=== PATIENT | male | born 1960 | race Caucasian/White ===

== ENCOUNTER 2016-10-17 23:19 | Inpatient (IN) | payer OTHER ==
--- NOTE | ~2016-10-17 | DS ---
Discharge Summary [facility] [address] [place]. [address] NAME: LAVINIA JJ : 56 STATUS : DIS IN PAT#: [id number] AGE: 55 ADM/REG DATE : 10/17/16 MR#: [id number] REPORT SERV DATE: 10/22/16 DICTATED BY: ANKIT RIVAS DATE: 10/21/16 REPORT STATUS : Draft TRANSCRIBED BY: MODL DATE: 10/21/16 ADMISSION DATE: 10/17/2016 DISCHARGE DATE: 10/21/2016 DISCHARGE DIAGNOSES: 1. Gastroenteritis, most likely infectious versus related to meloxicam as this has been going on off and on for three months according to the patient's history. 2. New-onset type 2 diabetes mellitus with a hemoglobin A1c of 9.7. 3. Gastroesophageal reflux disease. 4. Glaucoma. 5. Ileus that has now resolved. 6. Severe obstructive sleep apnea, on CPAP. 7. Pulmonary nodule and lymphadenopathy, followed in the outpatient setting. 8. Fatty liver disease, also noted on ultrasound of the liver this time. 9. Prior history of esophageal stricture with dilatation. CONSULTANTS DURING THIS HOSPITALIZATION: None. INVASIVE PROCEDURES DONE DURING THIS HOSPITALIZATION: None. BRIEF HISTORY OF PRESENT ILLNESS: The patient is a 55-year-old white male, presented with two days history of diarrhea and then proceeded on to have nausea and one large vomiting episode in the emergency department, so he was admitted. For detailed history and physical exam, please see note dictated by Dr. Rohith Mcclendon on 10/17/2016. HOSPITAL COURSE: After being admitted to the hospital, this patient underwent observation initially for his ileus and diarrhea. He was given supportive care and kept n.p.o. He was found to have significant elevated sugar on admission as well. All other medications were continued. He was found to have metabolic acidosis that quickly corrected with aggressive resuscitation of IV fluids. When I saw the patient in followup, this patient was still persistently having diarrhea at that time. It was recommended that we follow him further. He was thought to have improving gastroenteritis and his ileus had resolved, and he had had multiple loose bowel movements. For the new onset diabetes, initially we started him on subcutaneous sliding scale insulin. His Protonix was continued and changed to p.o. We added Florastor one tablet twice daily and we added Xifaxan thinking that this could be related to infectious diarrhea or irritable bowel syndrome. An ultrasound of the gallbladder was done to ensure no gallbladder disease. There were no stones nor any common bile duct problems. Fatty infiltration of the liver was noted. This patient continued to improve. All his lab work has remained stable. We advanced his diet and today, he has been able to tolerate his diet. He says that he feels well enough that he wants to go home and recover in the home setting. He had a colonoscopy done in 2013 that was unremarkable. He had an EGD done in 2015 that was unremarkable as well. After reviewing his medications, I suspected that he may have diarrhea waxing and waning most likely due to use of meloxicam as he reported today that this has been going on for about three months. Stool studies were done, which were negative. Discharge Summary [place] [id number] [place]. [address] NAME: LAVINIA JJ : 56 STATUS : DIS IN PAT#: [id number] AGE: 55 ADM/REG DATE : 10/17/16 MR#: [id number] REPORT SERV DATE: 10/22/16 DICTATED BY: ANKIT RIVAS DATE: 10/21/16 REPORT STATUS : Draft TRANSCRIBED BY: KESHA DATE: 10/21/16 DISPOSITION: Home. ACTIVITY: As tolerated. DIET: Low sodium diet with no concentrated sweets. MEDICATIONS: 1. Xifaxan 550 mg p.o. twice daily for 30 days to see if this would help his irritable bowel syndrome symptoms. 2. Prevacid 30 mg once every morning. 3. Allergy eyedrops as needed. 4. Timolol eye drops one drop twice daily in each eye. 5. Glucotrol 5 mg once daily. 6. Januvia 50 mg once daily. DISCHARGE FOLLOWUP: With Dr. Donovan Poole for further treatment of his diabetes and medication adjustments as deemed by guidelines for treatment of diabetes. More than 30 minutes spent planning this patient's discharge, reconciling medications, writing prescriptions, discussing hospital care, and followup with the patient and documenting this discharge. ANGELIA/KESHA Ankit Rivas M.D. / [id number] CC: Wilda Jolly M.D.
--- NOTE | ~2016-10-17 | HP ---
History And Physical [address] [address] NAME: LAVINIA JJ : 56 STATUS : ADM Eloy PAT#: [id number] AGE: 55 ADM/REG DATE : 10/17/16 MR#: [id number] REPORT SERV DATE: 10/18/16 DICTATED BY: NAY LÓPEZ DATE: 10/18/16 REPORT STATUS : Draft TRANSCRIBED BY: MODL DATE: 10/18/16 DATE OF ADMISSION: 10/17/2016 CHIEF COMPLAINT: A 55-year-old male presenting with abdominal pain and nausea. HISTORY OF PRESENT ILLNESS: The patient's history was obtained through careful interview with the patient, coupled with review of [facility] and [facility] medical records. The patient states that for about two days he has had primary symptom of diarrhea, it first was about once an hour over about 12-hour period of time when he started taking Lomotil and now it has improved considerably. He has began to have sour belches and nausea, had one large vomit episode here in the emergency department. He describes diaphoresis and anxiety, but no fevers or chills. The patient has never had a diagnosis of diabetes, but he has suffered from polyuria and polydipsia recently. He describes right upper quadrant abdominal discomfort with his nausea and diarrhea, sharp shooting pain 6 to 7/10 severity. Last night, he could not sleep because of it. No chest pain. No sick contacts. No recent antibiotics. No foreign travel. REVIEW OF SYSTEMS: Otherwise 14-point review of systems was obtained and was negative. PAST MEDICAL HISTORY: 1. Gastroesophageal reflux disorder with Samaniego's seen by Dr. Dre Contreras. 2. Severe obstructive sleep apnea, on CPAP. 3. Pulmonary nodules and lymphadenopathy, followed outpatient. 4. Fatty liver disease. 5. Vertigo. 6. Negative cardiac stress test in 2012. 7. Esophageal dilatation. PAST SURGICAL HISTORY: 1. Back surgery. 2. Right inguinal hernia repair. 3. Shoulder surgery. 4. Carpal tunnel release. 5. Septoplasty. ALLERGIES: NO KNOWN DRUG ALLERGIES. History And Physical [address] [address] NAME: LAVINIA JJ : 56 STATUS : ADM Eloy PAT#: [id number] AGE: 55 ADM/REG DATE : 10/17/16 MR#: [id number] REPORT SERV DATE: 10/18/16 DICTATED BY: NAY LÓPEZ DATE: 10/18/16 REPORT STATUS : Draft TRANSCRIBED BY: KESHA DATE: 10/18/16 SOCIAL HISTORY: No tobacco abuse. No alcohol abuse. He is . Lives in [place], [place]. He works as a micro computer specialist. Has no biological children. FAMILY HISTORY: Father with heart disease. There is a family history of diabetes and colon cancer. CURRENT MEDICATIONS: Unknown at this time. We have requested Pharmacy to evaluate. PHYSICAL EXAMINATION: VITAL SIGNS: Temperature 97.2, pulse 109, blood pressure 122/75, respiratory rate 18, and O2 saturation 92% on room air. GENERAL: A pleasant, cooperative, male in evidence of some distress secondary to nausea and abdominal pain. HEENT: Pupils equal, round, and reactive to light. No conjunctival pallor. No scleral icterus. Nares are patent. Oropharynx is clear of obstruction. Mildly dry mucous membranes. NECK: Trachea midline. No thyromegaly. LYMPH: No cervical lymphadenopathy. No supraclavicular lymphadenopathy. RESPIRATORY: Clear to auscultation at bases. No wheezes, rales, or rhonchi. Normal respiratory effort. CARDIOVASCULAR: Tachycardic. Regular rhythm. No murmurs, rubs, or gallops. No current extremity edema is appreciated. ABDOMEN: Diffusely tender by exam, nonfocal, and nondistended. No hepatosplenomegaly. DERMATOLOGICAL: Warm and dry extremities. No pallor. No cyanosis. PSYCHIATRIC: Normal affect. Good mood. Alert and oriented x3. LABORATORY DATA: White blood cell count 14.5, hemoglobin 17, hematocrit 49, and platelets 251. Sodium 137, potassium 3.4, chloride 108, bicarb 18, BUN 13, creatinine 1.04, glucose 275. Lipase 52, lactic acid 1.3. Total bilirubin 1.4. IMAGING STUDIES: CT scan of the abdomen shows fatty liver disease and mild ileus changes. ASSESSMENT AND PLAN: 1. Ileus with diarrhea and vomiting. Provide supportive care. 2. New diagnosis diabetes. Check hemoglobin A1c. Place on sliding scale insulin. Obtain a inclusion paraeducator consult. 3. Obstructive sleep apnea. Continue CPAP. 4. Systemic inflammatory response syndrome. We will monitor closely for now. 5. Metabolic acidosis. Provide supportive care and follow closely. KPL/MODL Nay Sparks History And Physical [address] [address] NAME: LAVINIA JJ : 56 STATUS : ADM Eloy PAT#: [id number] AGE: 55 ADM/REG DATE : 10/17/16 MR#: [id number] REPORT SERV DATE: 10/18/16 DICTATED BY: NAY LÓPEZ DATE: 10/18/16 REPORT STATUS : Draft TRANSCRIBED BY: KESHA DATE: 10/18/16 Wilda López / [id number] CC: Alfa Shepard Jr, MD
[~2016-10-17 23:19] MED LIST: ASAB PO; AUG500 PO; BETIMOL0.5 % OPH; LORCET PO; MOBIC15 MG PO; MOBIC7.5 PO; PAIN MED PO; PREV15 PO; PREV30 PO
[2016-10-17 23:48] LABS: BASOPHILS 0 %; EOSINOPHILS 1.4 %; ER CBC TAT 0 Hrs 09 Mins; HEMATOCRIT 48.7 % (40.0-51.0); HEMOGLOBIN 17.2 g/dL (13.6-17.8); IMMATURE GRANULOCYTES 0.3 %; IMMATURE GRANULOCYTES ABSOLUTE 0.05 10/3/uL (0.0-0.11); LYMPHOCYTES 14.6 %; LYMPHOCYTES ABSOLUTE 2.12 10/3/uL (0.67-4.30); MEAN CORPUS HGB CONC 35.3 g/dL (32.0-36.0); MEAN CORPUSCULAR VOLUME 87.9 fL (80-100); MEAN PLATELET VOLUME 10.7 fL (9.2-13.0); MONOCYTES 10.2 %; MONOCYTES ABSOLUTE 1.48 10/3/uL (0.21-1.20); NEUTROPHILS 73.5 %; NEUTROPHILS ABSOLUTE 10.63 10/3/uL (2.02-8.40); PLATELET COUNT 251 10/3/uL (150-400); RBC DISTRIBUTION WIDTH 13.5 % (12.0-16.0); RED CELL COUNT 5.54 10/6/uL (4.7-6.1); WHITE BLOOD CELLS 14.5 10/3/uL (4.5-10.5)
[2016-10-17 23:49] LABS: MANUAL DIFF NO %
[2016-10-18 00:04] LABS: A/G RATIO 0.9 (0.7-1.9); ALBUMIN 3.5 G/DL (3.5-5.0); ALKALINE PHOSPHATASE 97 U/L (45-117); BUN (BLOOD UREA NITROGEN) 13 MG/DL (6-23); CALCIUM, SERUM 8.7 MG/DL (8.5-10.4); CHLORIDE, SERUM 105 MMOL/L (96-112); CREATININE 1.04 MG/DL (0.70-1.30); GFR AFRICAN AMERICAN 92 ML/MIN (>=60); GFR NON AFRICAN AMERICAN 79 ML/MIN (>=60); GLOBULIN 3.8 G/DL (2.5-4.1); POTASSIUM, SERUM 3.4 MMOL/L (3.5-5.3); SGOT(AST) 9 U/L (5-40); SGPT(ALT) 44 U/L (5-65); SODIUM, SERUM 137 MMOL/L (135-148); TOTAL PROTEIN 7.3 G/DL (6.0-8.5)
[2016-10-18 00:06] LABS: CO2 (CARBON DIOXIDE) 18 MMOL/L (24-34); GLUCOSE, SERUM 275 MG/DL (60-99); TOTAL BILIRUBIN 1.4 MG/DL (0-1.2)
[2016-10-18] MEDS ORDERED: PREV30 PO (02:50)
[2016-10-18] MEDS ORDERED: EPINASTINE 0.05% OPH (02:51)
[2016-10-18] MEDS ORDERED: TIMOLOL MAL0.5 % OPH (02:52)
[2016-10-18] MEDS ORDERED: MOBIC15 MG PO (02:53)
[2016-10-18 11:29] LABS: ASCORBIC ACID (UR NOT ORDER) NEG (NEG); BILIRUBIN, URINE NEGATIVE (NEG); ER URINALYSIS TAT 0 Hrs 07 Mins; KETONE, URINE 20 MG/DL (NEG); LEUKOCYTE ESTERASE(NOT OR NEG (NEG); NITRITE (URINE) NEG (NEG); WBC (NOT ORDERED) (RFLEX) 2 (0-5)
[2016-10-18 12:19] LABS: BASOPHILS 0.1 %; BASOPHILS ABSOLUTE 0.01 10/3/uL (0.0-0.16); EOSINOPHILS 1.8 %; EOSINOPHILS ABSOLUTE 0.23 10/3/uL (0.0-0.53); HEMOGLOBIN 14.5 g/dL (13.6-17.8); IMMATURE GRANULOCYTES 0.4 %; IMMATURE GRANULOCYTES ABSOLUTE 0.05 10/3/uL (0.0-0.11); LYMPHOCYTES 15.6 %; LYMPHOCYTES ABSOLUTE 2.01 10/3/uL (0.67-4.30); MEAN CORPUS HGB CONC 33.7 g/dL (32.0-36.0); MEAN CORPUSCULAR HEMOGLOB 30.1 pg (26.0-34.0); MEAN CORPUSCULAR VOLUME 89.2 fL (80-100); MEAN PLATELET VOLUME 10.1 fL (9.2-13.0); MONOCYTES 9.2 %; MONOCYTES ABSOLUTE 1.19 10/3/uL (0.21-1.20); NEUTROPHILS 72.9 %; NEUTROPHILS ABSOLUTE 9.39 10/3/uL (2.02-8.40); PLATELET COUNT 218 10/3/uL (150-400); RBC DISTRIBUTION WIDTH 13.8 % (12.0-16.0); RED CELL COUNT 4.82 10/6/uL (4.7-6.1); WHITE BLOOD CELLS 12.9 10/3/uL (4.5-10.5)
[2016-10-18 12:20] LABS: MANUAL DIFF NO %
[2016-10-18 12:26] LABS: INTERNATIONAL NORMAL RATI 1.2 UNITS (-); PARTIAL THROMBO TIME 33.4 SEC (22.5-37.2); PROTIME (NOT ORD) 14.9 SEC (12.0-14.5)
[2016-10-18 12:45] LABS: A/G RATIO 0.9 (0.7-1.9); ALBUMIN 2.8 G/DL (3.5-5.0); ALKALINE PHOSPHATASE 74 U/L (45-117); BUN (BLOOD UREA NITROGEN) 11 MG/DL (6-23); CALCIUM, SERUM 7.8 MG/DL (8.5-10.4); CHLORIDE, SERUM 106 MMOL/L (96-112); CO2 (CARBON DIOXIDE) 25 MMOL/L (24-34); CREATININE 0.88 MG/DL (0.70-1.30); GFR AFRICAN AMERICAN 111 ML/MIN (>=60); GFR NON AFRICAN AMERICAN 95 ML/MIN (>=60); GLOBULIN 3.1 G/DL (2.5-4.1); GLUCOSE, SERUM 233 MG/DL (60-99); POTASSIUM, SERUM 3.6 MMOL/L (3.5-5.3); SGOT(AST) 4 U/L (5-40); SGPT(ALT) 30 U/L (5-65); SODIUM, SERUM 140 MMOL/L (135-148); TOTAL BILIRUBIN 1.2 MG/DL (0-1.2); TOTAL PROTEIN 5.9 G/DL (6.0-8.5); TROPONIN I <0.02 NG/ML (<0.05)
[2016-10-18 13:19] LABS: PROCALCITONIN 0.17 ng/mL (<0.5)
[2016-10-19 05:26] LABS: BASOPHILS 0.1 %; BASOPHILS ABSOLUTE 0.01 10/3/uL (0.0-0.16); EOSINOPHILS 2.2 %; EOSINOPHILS ABSOLUTE 0.22 10/3/uL (0.0-0.53); HEMOGLOBIN 14.7 g/dL (13.6-17.8); IMMATURE GRANULOCYTES 0.4 %; IMMATURE GRANULOCYTES ABSOLUTE 0.04 10/3/uL (0.0-0.11); LYMPHOCYTES 20.6 %; LYMPHOCYTES ABSOLUTE 2.03 10/3/uL (0.67-4.30); MEAN CORPUS HGB CONC 34.2 g/dL (32.0-36.0); MEAN CORPUSCULAR HEMOGLOB 30.9 pg (26.0-34.0); MEAN CORPUSCULAR VOLUME 90.3 fL (80-100); MEAN PLATELET VOLUME 10.5 fL (9.2-13.0); MONOCYTES 9.6 %; MONOCYTES ABSOLUTE 0.94 10/3/uL (0.21-1.20); NEUTROPHILS 67.1 %; PLATELET COUNT 217 10/3/uL (150-400); RBC DISTRIBUTION WIDTH 13.8 % (12.0-16.0); RED CELL COUNT 4.76 10/6/uL (4.7-6.1); WHITE BLOOD CELLS 9.8 10/3/uL (4.5-10.5)
[2016-10-19 05:36] LABS: CALCIUM, SERUM 8.6 MG/DL (8.5-10.4); CHLORIDE, SERUM 107 MMOL/L (96-112); CO2 (CARBON DIOXIDE) 25 MMOL/L (24-34); CREATININE 0.71 MG/DL (0.70-1.30); GFR AFRICAN AMERICAN 121 ML/MIN (>=60); GFR NON AFRICAN AMERICAN 104 ML/MIN (>=60); PHOSPHORUS, SERUM 2.5 MG/DL (2.5-4.5); POTASSIUM, SERUM 3.6 MMOL/L (3.5-5.3); SODIUM, SERUM 142 MMOL/L (135-148)
[2016-10-19 05:40] LABS: MANUAL DIFF NO %
[2016-10-19 06:05] LABS: BUN (BLOOD UREA NITROGEN) 7 MG/DL (6-23); GLUCOSE, SERUM 154 MG/DL (60-99)
[2016-10-20 03:42] LABS: BASOPHILS 0.3 %; BASOPHILS ABSOLUTE 0.02 10/3/uL (0.0-0.16); EOSINOPHILS ABSOLUTE 0.24 10/3/uL (0.0-0.53); IMMATURE GRANULOCYTES 0.6 %; IMMATURE GRANULOCYTES ABSOLUTE 0.05 10/3/uL (0.0-0.11); LYMPHOCYTES 26.5 %; LYMPHOCYTES ABSOLUTE 2.12 10/3/uL (0.67-4.30); MEAN CORPUS HGB CONC 33.6 g/dL (32.0-36.0); MEAN CORPUSCULAR HEMOGLOB 30.4 pg (26.0-34.0); MEAN CORPUSCULAR VOLUME 90.5 fL (80-100); MEAN PLATELET VOLUME 10.5 fL (9.2-13.0); MONOCYTES 9.4 %; MONOCYTES ABSOLUTE 0.75 10/3/uL (0.21-1.20); NEUTROPHILS 60.2 %; NEUTROPHILS ABSOLUTE 4.82 10/3/uL (2.02-8.40); PLATELET COUNT 199 10/3/uL (150-400); RBC DISTRIBUTION WIDTH 13.8 % (12.0-16.0); RED CELL COUNT 5.26 10/6/uL (4.7-6.1)
[2016-10-20 03:43] LABS: HEMATOCRIT 47.6 % (40.0-51.0); MANUAL DIFF NO %
[2016-10-20 03:56] LABS: ALBUMIN 3.2 G/DL (3.5-5.0); BUN (BLOOD UREA NITROGEN) 6 MG/DL (6-23); CALCIUM, SERUM 8.6 MG/DL (8.5-10.4); CHLORIDE, SERUM 107 MMOL/L (96-112); CO2 (CARBON DIOXIDE) 26 MMOL/L (24-34); CREATININE 0.74 MG/DL (0.70-1.30); GFR AFRICAN AMERICAN 119 ML/MIN (>=60); GFR NON AFRICAN AMERICAN 102 ML/MIN (>=60); GLUCOSE, SERUM 143 MG/DL (60-99); POTASSIUM, SERUM 3.7 MMOL/L (3.5-5.3); SODIUM, SERUM 142 MMOL/L (135-148)
[2016-10-20 03:58] LABS: PHOSPHORUS, SERUM 3.3 MG/DL (2.5-4.5); PLATELET ESTIMATE ADQ (ADEQUATE)
[2016-10-21] MEDS ORDERED: JANUVIA50 PO (13:24)
[2016-10-21] MEDS ORDERED: GLUCOTROL5 PO (13:24)
[2016-10-21] MEDS ORDERED: XIFAXAN550 MG PO (13:25)
[2017-01-10] MEDS ORDERED: FISH-EPA1000 MG PO (13:57)
[2017-01-10] MEDS ORDERED: CINNAMONPO PO (13:57)
== END 2016-10-21 14:48 | disposition home or self-care (01) | DRG 394 ==
LOC: ER 23:19 → CDU1 23:59
PROVIDERS: Internal Medicine; Specialist
DX: K52.1 Toxic gastroenteritis and colitis (principal); A09 Infectious gastroenteritis and colitis, unspecified; E87.2 Acidosis; R65.10 Systemic inflammatory response syndrome (SIRS) of non-infectious origin without acute organ dysfunction; K56.7 Ileus, unspecified; E11.9 Type 2 diabetes mellitus without complications; K21.9 Gastro-esophageal reflux disease without esophagitis; K22.70 Barrett's esophagus without dysplasia; R59.1 Generalized enlarged lymph nodes; G47.33 Obstructive sleep apnea (adult) (pediatric); E87.6 Hypokalemia; K76.0 Fatty (change of) liver, not elsewhere classified; T39.395A Adverse effect of other nonsteroidal anti-inflammatory drugs [NSAID], initial encounter; Z83.3 Family history of diabetes mellitus; Z80.0 Family history of malignant neoplasm of digestive organs
CPT/HCPCS: 71010; 74000; 74176; 76705; 80053; 80069; 81001; 82150; 82962; 83036; 83605; 83690; 83735; 84145; 84443; 84484; 85025; 85610; 85730; 87328; 87329; 87493; 87493-59; 96374; 96376; 99285; A9270-GY; J1170; J2405

== ENCOUNTER 2016-11-17 23:00 | Emergency (ER) | payer OTHER ==
[~2016-11-17 23:00] MED LIST changes: +EPINASTINE 0.05% OPH; +GLUCOTROL5 PO; +JANUVIA50 PO; +TIMOLOL MAL0.5 % OPH; +XIFAXAN550 MG PO
[2016-11-18 01:33] LABS: BASOPHILS 0.1 %; BASOPHILS ABSOLUTE 0.01 10/3/uL (0.0-0.16); EOSINOPHILS 1.9 %; EOSINOPHILS ABSOLUTE 0.28 10/3/uL (0.0-0.53); HEMATOCRIT 50.7 % (40.0-51.0); HEMOGLOBIN 17.5 g/dL (13.6-17.8); IMMATURE GRANULOCYTES 0.1 %; IMMATURE GRANULOCYTES ABSOLUTE 0.02 10/3/uL (0.0-0.11); LYMPHOCYTES 9.4 %; LYMPHOCYTES ABSOLUTE 1.38 10/3/uL (0.67-4.30); MEAN CORPUS HGB CONC 34.5 g/dL (32.0-36.0); MEAN CORPUSCULAR HEMOGLOB 31.1 pg (26.0-34.0); MEAN CORPUSCULAR VOLUME 90.1 fL (80-100); MEAN PLATELET VOLUME 10.4 fL (9.2-13.0); MONOCYTES 8.8 %; MONOCYTES ABSOLUTE 1.29 10/3/uL (0.21-1.20); NEUTROPHILS 79.7 %; NEUTROPHILS ABSOLUTE 11.74 10/3/uL (2.02-8.40); PLATELET COUNT 236 10/3/uL (150-400); RBC DISTRIBUTION WIDTH 13.5 % (12.0-16.0); RED CELL COUNT 5.63 10/6/uL (4.7-6.1)
[2016-11-18 01:37] LABS: ER CBC TAT 0 Hrs 08 Mins; MANUAL DIFF NO %; WHITE BLOOD CELLS 14.7 10/3/uL (4.5-10.5)
[2016-11-18 01:48] LABS: A/G RATIO 1.2 (0.7-1.9); ALKALINE PHOSPHATASE 81 U/L (45-117); BUN (BLOOD UREA NITROGEN) 16 MG/DL (6-23); CALCIUM, SERUM 9.2 MG/DL (8.5-10.4); CHLORIDE, SERUM 105 MMOL/L (96-112); CO2 (CARBON DIOXIDE) 24 MMOL/L (24-34); CREATININE 0.93 MG/DL (0.70-1.30); GFR AFRICAN AMERICAN 105 ML/MIN (>=60); GFR NON AFRICAN AMERICAN 91 ML/MIN (>=60); GLOBULIN 3.4 G/DL (2.5-4.1); GLUCOSE, SERUM 176 MG/DL (60-99); POTASSIUM, SERUM 3.5 MMOL/L (3.5-5.3); SGOT(AST) 9 U/L (5-40); SGPT(ALT) 28 U/L (5-65); SODIUM, SERUM 139 MMOL/L (135-148); TOTAL BILIRUBIN 1.1 MG/DL (0-1.2); TOTAL PROTEIN 7.4 G/DL (6.0-8.5)
[2016-11-18 04:25] LABS: ASCORBIC ACID (UR NOT ORDER) NEG (NEG); BILIRUBIN, URINE NEGATIVE (NEG); ER URINALYSIS TAT 0 Hrs 00 Mins; KETONE, URINE 20 MG/DL (NEG); LEUKOCYTE ESTERASE(NOT OR NEG (NEG); NITRITE (URINE) NEG (NEG); WBC (NOT ORDERED) (RFLEX) 1 (0-5)
[2017-01-10] MEDS ORDERED: FISH-EPA1000 MG PO (13:57)
[2017-01-10] MEDS ORDERED: CINNAMONPO PO (13:57)
== END 2016-11-18 05:35 | disposition home or self-care (01) ==
LOC: ER 23:00
PROVIDERS: Emergency Medicine
DX: R10.9 Unspecified abdominal pain (principal); E11.9 Type 2 diabetes mellitus without complications; Z79.899 Other long term (current) drug therapy
CPT/HCPCS: 74176; 80053; 81001; 83690; 85025; 93005; 96374; 96375; 99284; J2405